=== PATIENT | male | born 1970 | race Caucasian/White ===

== ENCOUNTER 2021-01-20 22:24 | Emergency (ER) | payer BC ==
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
[2021-01-20] MEDS ORDERED: HYDROmorphone 0.5 MG/0.5 ML Syringe IVPUSH ONE ×2 (22:47→23:50)
[2021-01-20] MEDS ORDERED: Ondansetron 4 MG/2 ML SDV IVPUSH ONE (22:47)
[2021-01-20] MEDS ORDERED: Ondansetron 4 MG/2 ML SDV ONE (22:49)
[2021-01-20] MEDS ORDERED: Iopamidol 612 MG/ML 100 ML Bottle IV PRN (22:51)
[2021-01-20] MEDS ORDERED: Sodium Chloride 0.9% 10 ML SDV FLUSH ONE (22:51)
[2021-01-20] MEDS: Sodium Chloride 0.9% 10 ML Syringe FLUSH PRN ×2 (22:53→23:26)
[2021-01-20] MEDS ORDERED: Sodium Chloride 0.9% 100 ML IV SCH (23:00)
[2021-01-20] MEDS ORDERED: Diphtheria,Pertussis(Acell),Tetanus Vaccine 0.5 ML Syringe IM ONE (23:49)
[2021-01-20] MEDS ORDERED: Lidocaine 5% 700 MG Patch TOP ONE (23:57)
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
--- NOTE | 2021-01-22 10:19 | CR ---
Femur Min 2V Lt CLINICAL HISTORY: Trauma FINDINGS: There is no acute fracture within the femur. No destructive changes are seen. No foreign body seen Impression: Negative
== END 2021-01-21 00:28 ==
LOC: JP.ED 22:24 → EDBD 22:24 → JP.ED 01-21 00:28
DX: S22.42XA Multiple fractures of ribs, left side, initial encounter for closed fracture (principal); S70.12XA Contusion of left thigh, initial encounter; S27.321A Contusion of lung, unilateral, initial encounter; J93.9 Pneumothorax, unspecified; Z23 Encounter for immunization; V86.56XA Driver of dirt bike or motor/cross bike 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 accident, initial encounter
CPT/HCPCS: 36415; 70450; 71260; 72125; 73552; 74177; 80053; 80307; 81001; 85025; 85610; 85730; 90471; 90715; 96374; 96375; 96376; 99285; 99291; A9270; J1170; J2405; Q9967